=== PATIENT | male | born 1990 | race African-American/Black ===

== ENCOUNTER 2022-11-02 16:41 | Emergency (ER) | payer SELFPAY ==
[~2022-11-02] VITALS: Ht 182.9 cm; Wt 85.3 kg
[2022-11-02] MEDS ORDERED: LORAZEPAM 1 MG TABLET PO ONE (17:00)
[2022-11-02 17:04] VITALS: BP 142/90
[2022-11-02 18:18] LABS: BASOPHILS % (AUTO) 0.5 % (0.0-2.0); EOSINOPHILS % (AUTO) 2.4 % (0.0-6.0); HEMATOCRIT 40 % (39-51); HEMOGLOBIN 13.2 g/dL (13.5-17.5); LYMPHOCYTES # (AUTO) 1.6 K/uL (0.8-4.8); LYMPHOCYTES % (AUTO) 46.6 % (20.0-44.0); MEAN CORPUSCULAR HGB CONC 33 g/dl (31.0-36.0); MEAN CORPUSCULAR VOLUME 94 fL (80-96); MONOCYTES # (AUTO) 0.2 K/uL (0.1-1.30); MONOCYTES % (AUTO) 6.4 % (2.0-12.0); NEUTROPHILS # (AUTO) 1.5 K/uL (1.8-8.9); NEUTROPHILS % (AUTO) 44.1 % (43.0-81.0); PLATELET COUNT (AUTO) 241 K/uL (150-450); WHITE BLOOD COUNT (AUTO) 3.5 K/uL (4.3-11.0)
[2022-11-02 18:45] LABS: ALANINE AMINOTRANSFERASE 21 U/L (12-78); ALBUMIN 3.6 g/dL (3.4-5.0); ALCOHOL, BLOOD < 3 mg/dL (0-0); ALKALINE PHOSPHATASE 76 U/L (46-116); ASPARTATE AMINOTRANSFERASE 24 U/L (15-37); BILIRUBIN,DIRECT 0.2 mg/dL (0.0-0.2); BILIRUBIN,TOTAL 0.5 mg/dL (0.2-1.0); CALCIUM, SERUM 8.7 mg/dL (8.5-10.1); CARBON DIOXIDE 25 mmol/L (21-32); CHLORIDE 103 mmol/L (98-107); CREATININE 1.1 mg/dL (0.6-1.3); GLUCOSE 143 mg/dL (74-106); POTASSIUM 3.3 mmol/L (3.5-5.1); SODIUM SERUM 135 mmol/L (136-145); TOTAL PROTEIN, SERUM 7.6 g/dL (6.4-8.2); UREA NITROGEN, BLOOD 13 mg/dL (7-18)
[2022-11-02 18:48] LABS: ACETAMINOPHEN 0 ug/ml (10-30)
--- NOTE | 2022-11-02 20:30 | NUR ---
PT WAS CALLED NO ANSWER.
[2022-11-02] MEDS ORDERED: LORAZEPAM 1 MG TABLET ONE (20:57)
--- NOTE | 2022-11-02 21:25 | NUR ---
Patient discharged to home in stable condition. Written and verbal after care instructions given. Patient verbalizes understanding of instruction. Pt ambulatory with a steady gait
== END 2022-11-02 21:26 | disposition home or self-care (01) ==
LOC: ER 16:43
DX: F15.10 Other stimulant abuse, uncomplicated (principal); F12.10 Cannabis abuse, uncomplicated; F41.9 Anxiety disorder, unspecified; F22 Delusional disorders; Z60.2 Problems related to living alone
CPT/HCPCS: 36415; 80048-TC; 80076-TC; 85025-TC; G0480

== ENCOUNTER 2022-11-03 06:22 | Emergency (ER) | payer SELFPAY ==
--- NOTE | 2022-11-03 06:42 | NUR ---
CALLED TO TRIAGE - NO ANSWER
--- NOTE | 2022-11-03 06:52 | NUR ---
CALLED TO TRIAGE ONCE AGAIN, STILL NO ANSWER
--- NOTE | 2022-11-03 07:02 | NUR ---
CALLED ONCE AGAIN FOR TRIAGE, STILL NO ANSWER
== END 2022-11-03 07:03 | disposition left against medical advice (07) ==
LOC: ER 06:25
DX: Z53.21 Procedure and treatment not carried out due to patient leaving prior to being seen by health care provider (principal)